=== PATIENT | male | born 1945 | race Caucasian/White ===

== ENCOUNTER 2019-06-05 22:23 | Emergency (ER) | payer MEDICARE ==
[2019-06-05 22:29] VITALS: RESP 18; TEMP 98.1
--- NOTE | 2019-06-05 22:43 | ED ---
General Adult HPI - General Chief complaint: Neuro Symptoms/Deficit Stated complaint: poss brain bleed Time Seen by Provider: 06/05/19 22:27 Source: patient Mode of arrival: ambulatory Limitations: no limitations - History of Present Illness Initial comments: Dictation was produced using [employer] dictation software. please excuse any gra mmatical, word or spelling errors. Chief Complaint: 73-year-old male is as with abnormal MRI. History of Present Illness: She is 73-year-old male he was sent in by his neurologist for abnormal MRI. Patient had an MRI today for having TIA/neuro symptoms that resolved occurring 6 weeks ago he did not seek medical attention for it. 2 weeks ago patient was admitted to [facility] for acute kidney injury. He did receive ureteral stents for kidney stones. Patient was finally evaluated by his neurologist and got an MRI today. There is findings of hemorrhagic infarct and subarachnoid hemorrhage located in the rental parietal region. Patient has no symptoms at this time. Denies any neuro symptoms. No headache. Discussed patient case with patient's neurologist who requests that we order a computed tomography scan to make sure that these MRI findings are not new. Patient is on Coumadin. The ROS documented in this emergency department record has been reviewed and c onfirmed by me. Those systems with pertinent positive or negative responses have been documented in the HPI. All other systems are other negative and/or noncontributory. PHYSICAL EXAM: General Impression: Alert and oriented x3, not in acute distress HEENT: Normocephalic atraumatic, extra-ocular movements intact, pupils equal and reactive to light bilaterally, mucous membranes moist. Cardiovascular: Heart regular rate and rhythm, S1&S2 audible, no murmurs, rubs or gallops Chest: Lungs clear to auscultation bilaterally, no rhonchi, no wheeze, no rales Abdomen: Bowel sounds present, abdomen soft, non-tender, non-distended, no organomegaly Musculoskeletal: Pulses present and equal in all extremities, no peripheral edema Motor: no focal deficits noted Neurological: CN II-XII grossly intact, no focal motor or sensory deficits noted, no gait ataxia Skin: Intact with no visualized rashes Psych: Normal affect and mood ED course: 73-year-old male presents with abnormal MRI. Signs upon arrival are within acceptable limits. Physical examination is benign.Computed tomography scan of the brain was obtained showing no acute processes. Patient had INR 3.6. He is adjusting his Coumadin at home because he had a 3.8 earlier today. He will take a half dose tomorrow. Patient has creatinine 1.60 with a BUN at 35. He was not tricking flows like he was instructed to today. Patient given 500 mL bolus. Discussed patient case with radiologist who I asked rereview his CT and light of his MRI results. Dr. Boudreaux he continues to endorse that there is a concern for an acute intracranial processes. Patient observed in emergency department and is currently stable. He denies any neurologic symptoms. Patient stable for discharge. Return parameters discussed. Advised to follow up with neurologist. EKG interpretation: Ventricular rate 86, A. fib, QS 144, QTC 471. No WA prolongation, no QTC prolongation, no ST or T-wave changes noted. Overall, this EKG is unremarkable - Related Data Home Medications Medication Instructions Recorded Confirmed Ascorbic Acid [Vitamin C] 500 mg PO DAILY 07/10/16 06/05/19 Azelastine HCl [Astepro] 2 spray EA NOSTRIL HS 07/10/16 06/05/19 Diclofenac Potassium [Cataflam] 50 mg PO BID PRN 07/10/16 06/05/19 Docusate [Colace] 100 mg PO DAILY PRN 07/10/16 06/05/19 Glucosam/Hunter-Msm1/C/Toby/Bosw 1 tab PO DAILY 07/10/16 06/05/19 [Glucosamine-Chondroitin Tablet] Multivitamins, Thera [Multivitamin] 1 tab PO DAILY 07/10/16 06/05/19 Warfarin Sodium 5 mg PO Q48H 07/10/16 06/05/19 Warfarin Sodium 7.5 mg PO Q48H 07/10/16 06/05/19 guaiFENesin [Mucinex] 600 mg PO Q12H PRN 07/10/16 06/05/19 Bacitracin Oint 1 applic TOPICAL BID 06/05/19 06/05/19 Metoprolol Succinate [Toprol Xl] 100 mg PO BID 06/05/19 06/05/19 Ubidecarenone [Co Q-10] 100 mg PO BID 06/05/19 06/05/19 Allergies Allergy/AdvReac Type Severity Reaction Status Date / Time No Known Allergies Allergy Verified 06/05/19 23:04 Review of Systems ROS Statement: Those systems with pertinent positive or pertinent negative responses have been documented in the HPI. ROS Other: All systems not noted in ROS Statement are negative. Past Medical History Past Medical History: Atrial Fibrillation History of Any Multi-Drug Resistant Organisms: None Reported Past Surgical History: Joint Replacement, Orthopedic Surgery Additional Past Surgical History / Comment(s): cardioversion hip and knee replacement, kidney stents Past Psychological History: No Psychological Hx Reported Smoking Status: Never smoker Past Alcohol Use History: Occasional Past Drug Use History: None Reported General Exam Limitations: no limitations Course Vital Signs 06/05/19 22:25 Temperature 98.1 F Pulse Rate 84 Respiratory 18 Rate Blood Pressure 128/81 O2 Sat by Pulse 99 Oximetry Medical Decision Making - Lab Data Result diagrams: 06/05/19 22:35 06/05/19 22:35 Lab Results 06/05/19 06/05/19 06/05/19 Range/Units 22:35 22:35 22:35 WBC 6.1 (3.8-10.6) k/uL RBC 4.44 (4.30-5.90) m/uL Hgb 14.3 (13.0-17.5) gm/dL Hct 41.8 (39.0-53.0) % MCV 94.1 (80.0-100.0) fL MCH 32.3 (25.0-35.0) pg MCHC 34.3 (31.0-37.0) g/dL RDW 14.6 (11.5-15.5) % Plt Count 189 (150-450) k/uL Neutrophils % 53 % Lymphocytes % 30 % Monocytes % 8 % Eosinophils % 7 % Basophils % 1 % Neutrophils # 3.2 (1.3-7.7) k/uL Lymphocytes # 1.8 (1.0-4.8) k/uL Monocytes # 0.5 (0-1.0) k/uL Eosinophils # 0.4 (0-0.7) k/uL Basophils # 0.1 (0-0.2) k/uL PT 34.6 H (9.0-12.0) sec INR 3.6 H (<1.2) APTT 45.3 H (22.0-30.0) sec Sodium 138 (137-145) mmol/L Potassium 4.6 (3.5-5.1) mmol/L Chloride 109 H (98-107) mmol/L Carbon Dioxide 19 L (22-30) mmol/L Anion Gap 10 mmol/L BUN 35 H (9-20) mg/dL Creatinine 1.62 H (0.66-1.25) mg/dL Est GFR (CKD-EPI)AfAm 48 (>60 ml/min/1.73 sqM) Est GFR (CKD-EPI)NonAf 42 (>60 ml/min/1.73 sqM) Glucose 121 H (74-99) mg/dL Calcium 9.4 (8.4-10.2) mg/dL Disposition Clinical Impression: Abnormal MRI Disposition: HOME SELF-CARE Condition: Good Instructions (If sedation given, give patient instructions): Magnetic Resonance Imaging (ED) Is patient prescribed a controlled substance at d/c from ED?: No Referrals: See Reynolds MD [Primary Care Provider] - 1-2 days Time of Disposition: 23:53
[2019-06-05 22:55] LABS: Basophils # (A) 0.1 k/uL (0-0.2); Basophils % (A) 1 %; Eosinophils # (A) 0.4 k/uL (0-0.7); Eosinophils % (A) 7 %; HCT 41.8 % (39.0-53.0); HGB 14.3 gm/dL (13.0-17.5); Lymphocytes # (A) 1.8 k/uL (1.0-4.8); Lymphocytes % (A) 30 %; MCH 32.3 pg (25.0-35.0); MCHC 34.3 g/dL (31.0-37.0); MCV 94.1 fL (80.0-100.0); Monocytes # (A) 0.5 k/uL (0-1.0); Monocytes % (A) 8 %; Neutrophils # (A) 3.2 k/uL (1.3-7.7); Neutrophils % (A) 53 %; Platelet Count 189 k/uL (150-450); RBC 4.44 m/uL (4.30-5.90); RDW 14.6 % (11.5-15.5); WBC 6.1 k/uL (3.8-10.6)
[2019-06-05 23:04] LABS: Calcium 9.4 mg/dL (8.4-10.2); Potassium 4.6 mmol/L (3.5-5.1)
[2019-06-05 23:07] LABS: INR 3.6 (<1.2); Partial Thromboplastin Time 45.3 sec (22.0-30.0); Prothrombin Time 34.6 sec (9.0-12.0)
--- NOTE | 2019-06-05 23:12 | CT ---
ADDENDUM - Added by Jacek Boudreaux MD on 06/05/2019 11:43 PM (-07:00) Comparison was made to the MRI from 06/05/19. No brain CT findings to correspond to the left frontal parietal lesion seen on the MRI. 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 EXAM: CT Head Without Intravenous Contrast CLINICAL HISTORY: ITS.REASON CT Reason: Pain TECHNIQUE: Axial computed tomography images of the head/brain without intravenous contrast. This CT exam was performed using one or more of the following dose reduction techniques: automated exposure control, adjustment of the mA and/or kV according to patient size, and/or use of iterative reconstruction technique. COMPARISON: No relevant prior studies available. FINDINGS: Brain: No hemorrhage. No edema. Ventricles: Unremarkable. No ventriculomegaly. Bones/joints: No acute fracture. Soft tissues: Unremarkable. Sinuses: No fluid levels. Mastoid air cells: Unremarkable as visualized. No mastoid effusion. IMPRESSION: No acute intracranial findings <MYCVCSECTION> Critical Value Communications 06/05/19 23:40 Call From [facility] [address]. Hidalgo on 06/05 23:38 (-04:00)
[2019-06-05] MEDS ORDERED: SODIUM CHLORIDE 0.9% 500 ML 500 ML IV STA (23:34)
[2019-06-06 01:02] VITALS: BP 122/58; PULSE 98
== END 2019-06-06 01:01 | disposition home or self-care (01) ==
LOC: EC 22:23
DX: R93.89 Abnormal findings on diagnostic imaging of other specified body structures (principal); I48.91 Unspecified atrial fibrillation; Z79.01 Long term (current) use of anticoagulants; Z79.899 Other long term (current) drug therapy; Z96.659 Presence of unspecified artificial knee joint; Z96.649 Presence of unspecified artificial hip joint
CPT/HCPCS: 36415; 70450; 80048; 85025; 85610; 85730; 93005; 96360; 99284

== ENCOUNTER → 2019-06-05 | Outpatient (CLI) | payer MEDICARE ==
--- NOTE | 2019-06-05 11:57 | MR ---
MR brain without contrast HISTORY: Cerebral vascular accident Multiplanar multisequence imaging through the brain. Correlation to prior brain MRI dated 11/26/2012 Small focus of restricted diffusion is present at the level of the convexity on the left near the fro ntoparietal junction. There is associated increased signal on T1-weighted images measuring approximat idalia 15 mm x 4 mm x 12 in size. There is increased signal noted in this distribution on T2 and inversi on recovery sequences with peripheral low signal suggesting hemosiderin deposition. Additionally, the re are scattered hyperintensities on inversion recovery and T2-weighted sequences within the perivent ricular, subcortical and juxtacortical white matter. Age-related atrophy is noted. There is abnormal increased signal on inversion recovery sequences adjacent to the right cerebellar h emisphere and anterior to the kwasi. No evident mass effect. Inflammatory change noted in the ethmoid air cells, frontal sinus. Orbits show symmetric appearance. Some mild inflammatory change present within the right temporal bone. IMPRESSION: Findings suggest hemorrhagic infarct subarachnoid hemorrhage as described. Report relayed telephonically to the referring clinician at the time of interpretation at exam. Chronic small vesse l ischemic changes, age related atrophy and sinus disease.
--- NOTE | 2019-06-05 12:19 | MR ---
EXAMINATION TYPE: MR angio head wo/neck wo/w con DATE OF EXAM: 06/05/2019 COMPARISON: MR brain same day HISTORY: CVA TECHNIQUE: Time of flight images focusing on the [place] of [place] and carotid arteries were performed without contrast. Postcontrast images performed through the neck. 2-D and 3-D postprocessing imagin g is performed. FINDINGS: There is no evident dissection, embolus, or aneurysm. Anterior, posterior circulation is pa tent within the brain. Common carotid arteries, internal and external carotid arteries, vertebral arteries are patent. Verte bral arteries are codominant. No evidence stenosis of the proximal internal carotid arteries. Transve rse aorta, innominate artery, proximal left and right subclavian arteries are patent. IMPRESSION: Unremarkable [place] of [place] MRA. Normal carotid arteries.
== END | disposition home or self-care (01) ==
LOC: RADMRIMAIN 08:52
PROVIDERS: ATTEND Psychiatry & Neurology Neurology
DX: G31.1 Senile degeneration of brain, not elsewhere classified (principal); I67.82 Cerebral ischemia; E63.1 Imbalance of constituents of food intake; R26.9 Unspecified abnormalities of gait and mobility
CPT/HCPCS: 70544; 70549; 70551; A9585